=== PATIENT | male | born 1970 | race Caucasian/White ===

== ENCOUNTER → 2016-09-21 | Outpatient (CLI) | payer BC ==
[2016-09-21 11:41] LABS: ALT/SGPT 22 U/L (12-78); AST/SGOT 11 U/L (15-37); BLOOD UREA NITROGEN 12 mg/dl (7-18); BUN/CREATININE RATIO 11.2 (10-20); CALCIUM 8.5 mg/dl (8.5-10.1); CARBON DIOXIDE 24 mmol/L (21-32); CHLORIDE 111 mmol/L (98-107); CHOLESTEROL 159 mg/dl (0-200); GLUCOSE 104 mg/dl (70-99); POTASSIUM 4.1 mmol/L (3.5-5.1); SODIUM 142 mmol/L (136-145)
[2016-09-21 11:45] LABS: ALB/GLOB RATIO 1.1 (0.9-2); ALKALINE PHOSPHATASE 41 U/L (45-117); CHOLESTEROL/HDL RATIO 6.1; HDL CHOLESTEROL 26 mg/dl; LDL CHOLESTEROL CALCULATED 112 mg/dl; TRIGLYCERIDES 105 mg/dl (0-150); VERY LOW DENSITY LIPOPROT CALC 21 mg/dl
== END | disposition home or self-care (01) ==
LOC: C.LABBC 08:32
PROVIDERS: ATTEND Physician Assistant Medical
DX: Z00.00 Encounter for general adult medical examination without abnormal findings (principal); E78.1 Pure hyperglyceridemia

== ENCOUNTER → 2016-09-25 | Outpatient (CLI) | payer BC ==
[2016-09-25 14:03] LABS: ALT/SGPT 26 U/L (12-78); AST/SGOT 12 U/L (15-37)
== END | disposition home or self-care (01) ==
LOC: C.LABBC 11:03
PROVIDERS: ATTEND Podiatrist Foot & Ankle Surgery
DX: B35.1 Tinea unguium (principal)

== ENCOUNTER → 2016-10-26 | Outpatient (CLI) | payer BC ==
[2016-10-26 17:20] LABS: LYME DISEASE AB IGG NEG (NEG); LYME DISEASE AB IGM NEG (NEG)
== END | disposition home or self-care (01) ==
LOC: C.LABBC 14:35
PROVIDERS: ATTEND Physician Assistant Medical
DX: R51 Headache (principal)

== ENCOUNTER → 2017-10-18 | Outpatient (CLI) | payer BC ==
--- NOTE | 2017-10-22 15:26 | POLYSOMNOGRAPH REPORT ---
CLINICAL DATA: A 47-year-old male with BMI of [address] Preston Singleton with a history of snoring, obesity, and metabolic syndrome. On the evening of 10/18/2017, a home sleep apnea test was performed using a [employer] In type 3 monitor. RECORDING RESULTS: Total recording time was 10 hours. The patient's monitoring time and estimated sleep time was 7.3 hours. RESPIRATORY DATA: There was no evidence of clinically significant sleep apnea seen. The NATASHA was 3.4. There were 25 hypopneic episodes. The longest respiratory event was 34 seconds. OXIMETRY DATA: No hypoxemia was seen. Oxygen lenny was 88%. Mean saturation was 94%. Time below 89% was 0 minutes. HEART RATE DATA: Heart rates ranged from 46-58 beats per minute. SNORING DATA: Snoring was recorded throughout the night. IMPRESSION: No evidence of clinically significant sleep apnea/hypopnea or nocturnal hypoxemia. RECOMMENDATIONS: The patient may benefit from weight loss. He should continue to practice good sleep hygiene. DARI
== END | disposition home or self-care (01) ==
LOC: C.NEUR 10:28
PROVIDERS: ATTEND Internal Medicine
DX: R06.83 Snoring (principal)